=== PATIENT | male | born 1965 | race Caucasian/White ===

== ENCOUNTER 2018-04-17 08:14 | Inpatient (IN) | payer MEDICAID ==
[~2018-04-17] VITALS: Ht 180.3 cm; Wt 78.7 kg
[2018-04-17 09:58] LABS: CALCIUM 8.2 mg/dL (8.5-10.1); CARBON DIOXIDE 26.8 mmol/L (21-32); CREATININE SERUM 1.4 mg/dL (0.7-1.3); POTASSIUM SERUM 3.7 mmol/L (3.5-5.1)
[2018-04-17 10:08] LABS: BASOPHIL % 0.2 % (0-2); BILIRUBIN TOTAL 3.3 mg/dL (0.20-1.00); C REACTIVE PROTEIN 3.6 mg/dL (<=0.9); PLATELET COUNT 327 x10^3mcL (130-400); TOTAL PROTEIN, SERUM 6.2 g/dL (6.4-8.2)
[2018-04-17 10:09] LABS: ALBUMIN 2.6 g/dL (3.4-5.0)
[2018-04-17 10:11] LABS: T3 TOTAL 0.9 ng/mL
[2018-04-17 10:13] LABS: RED CELL DISTRIBUTION WIDTH 16.2 % (11.5-14.5)
[2018-04-17 10:18] LABS: CK-MB 20.9 ng/mL (0-3.6)
[2018-04-17 10:21] LABS: FREE T4 1.36 ng/dL (0.76-1.46); FREE THYROXINE INDEX 2.9 ug/dL (1.4-4.5); T4(THYROXINE) 7.7 ug/dL (4.7-13.3)
[2018-04-17 11:40] LABS: ERYTHROCYTE SED RATE 14 mm/hr (0-15)
[2018-04-17 12:02] LABS: CHOLESTEROL/HDL RATIO 3.9
[2018-04-17 12:40] VITALS: BP 164/108
[2018-04-17 13:18] LABS: UA SPECIFIC GRAVITY 1.025 (1.005-1.035); microscopic required? YES; urine erythrocyte TRACE (NEGATIVE)
[2018-04-17 13:59] LABS: AMPHETAMINE QUAL UR POSITIVE (See below)
[2018-04-17 16:00] VITALS: BP 177/100
[2018-04-17 19:15] VITALS: BP 149/96
[2018-04-17 23:45] VITALS: BP 150/108
[2018-04-18 03:39] VITALS: BP 159/109
[2018-04-18 05:38] LABS: BASOPHIL % 0.4 % (0-2); PLATELET COUNT 300 x10^3mcL (130-400)
[2018-04-18 05:41] LABS: RED CELL DISTRIBUTION WIDTH 16.4 % (11.5-14.5)
[2018-04-18 05:52] LABS: CALCIUM 8.1 mg/dL (8.5-10.1); CARBON DIOXIDE 32.4 mmol/L (21-32); CREATININE SERUM 1.5 mg/dL (0.7-1.3); MAGNESIUM 1.6 mg/dL (1.8-2.4); PHOSPHOROUS 4.6 mg/dL (2.5-4.9)
[2018-04-18 05:53] LABS: BILIRUBIN DIRECT 0.77 mg/dL (0.0-0.2); BILIRUBIN TOTAL 2.75 mg/dL (0.20-1.00); TOTAL PROTEIN, SERUM 6.7 g/dL (6.4-8.2)
[2018-04-18 05:54] LABS: ALBUMIN 2.7 g/dL (3.4-5.0); POTASSIUM SERUM 2.7 mmol/L (3.5-5.1)
[2018-04-18 07:37] VITALS: Ht 180.3 cm; Wt 78.7 kg
[2018-04-18 07:50] VITALS: BP 141/97
[2018-04-18 16:32] VITALS: BP 147/92
[2018-04-18 21:24] VITALS: BP 126/79
[2018-04-19 05:42] VITALS: BP 148/110
[2018-04-19 07:32] LABS: BASOPHIL % 0.2 % (0-2); PLATELET COUNT 309 x10^3mcL (130-400)
[2018-04-19 07:45] LABS: RED CELL DISTRIBUTION WIDTH 16.9 % (11.5-14.5)
[2018-04-19 08:27] LABS: BILIRUBIN DIRECT 0.45 mg/dL (0.0-0.2); BILIRUBIN TOTAL 1.4 mg/dL (0.20-1.00); CALCIUM 8.2 mg/dL (8.5-10.1); CARBON DIOXIDE 30.1 mmol/L (21-32); CREATININE SERUM 1.4 mg/dL (0.7-1.3); PHOSPHOROUS 4.1 mg/dL (2.5-4.9)
[2018-04-19 09:09] LABS: ALBUMIN 2.4 g/dL (3.4-5.0); POTASSIUM SERUM 2.6 mmol/L (3.5-5.1); TOTAL PROTEIN, SERUM 6.1 g/dL (6.4-8.2)
[2018-04-19 09:48] VITALS: BP 139/72
[2018-04-19 13:08] VITALS: BP 130/82
[2018-04-19 17:47] VITALS: BP 144/95
[2018-04-19 19:04] LABS: CALCIUM 8.1 mg/dL (8.5-10.1); CARBON DIOXIDE 30.2 mmol/L (21-32); CREATININE SERUM 1.4 mg/dL (0.7-1.3); POTASSIUM SERUM 4.2 mmol/L (3.5-5.1)
[2018-04-19 20:58] VITALS: BP 131/94
[2018-04-20 06:12] LABS: BASOPHIL % 0.1 % (0-2); PLATELET COUNT 289 x10^3mcL (130-400)
[2018-04-20 06:25] LABS: RED CELL DISTRIBUTION WIDTH 16.3 % (11.5-14.5)
[2018-04-20 06:42] LABS: CALCIUM 8.2 mg/dL (8.5-10.1); CARBON DIOXIDE 29.4 mmol/L (21-32); CHLORIDE SERUM 99 mmol/L (98-107); CREATININE SERUM 1.3 mg/dL (0.7-1.3); GFR1 > 60 mL/min; GLUCOSE SERUM 86 mg/dL (74-106); MAGNESIUM 1.9 mg/dL (1.8-2.4); POTASSIUM SERUM 3.3 mmol/L (3.5-5.1); SODIUM SERUM 136 mmol/L (136-145)
[2018-04-20 06:54] VITALS: BP 173/105
[2018-04-20 09:38] VITALS: BP 124/81
[2018-04-20] MEDS ORDERED: NOR5 PO (12:13)
[2018-04-20] MEDS ORDERED: ZESTRIL20 MG PO (12:14)
[2018-04-20] MEDS ORDERED: SPIRONOLACTONE100 MG PO (12:15)
[2018-04-20] MEDS ORDERED: LASIX40 MG PO (12:15)
[2018-04-20] MEDS ORDERED: CORE25 PO (12:17)
[2018-04-20] MEDS ORDERED: POTASSIUM CHLO10 ME2 PO (12:18)
[2018-04-20 13:01] VITALS: BP 124/81
== END 2018-04-20 14:20 | disposition home or self-care (01) | DRG 199 ==
LOC: ED 08:14 → IC 10:57 → DU 10:57 → IC 11:50 → DU 04-18 13:20
PROVIDERS: Specialist; ADMIT Internal Medicine
DX: I16.0 Hypertensive urgency (principal); N17.0 Acute kidney failure with tubular necrosis; E43 Unspecified severe protein-calorie malnutrition; J18.9 Pneumonia, unspecified organism; I50.20 Unspecified systolic (congestive) heart failure; E87.1 Hypo-osmolality and hyponatremia; E83.42 Hypomagnesemia; I11.0 Hypertensive heart disease with heart failure; E87.6 Hypokalemia; F15.10 Other stimulant abuse, uncomplicated; F17.210 Nicotine dependence, cigarettes, uncomplicated; Z68.26 Body mass index [BMI] 26.0-26.9, adult; Z83.3 Family history of diabetes mellitus
CPT/HCPCS: 83880; 84439; 87804; 90658; G0480; J0360; J0456; J0696; J1940; J2060; J2543; J3480; J3490; J7040; Q0092